=== PATIENT | female | born 1980 | race Two or more races ===

== ENCOUNTER → 2017-10-30 | Outpatient (CLI) | payer MEDICAID | END | disposition home or self-care (01) | LOC: CFH 07:23 | PROVIDERS: ATTEND Emergency Medicine | DX: R10.9 Unspecified abdominal pain (principal) | CPT/HCPCS: 76700 ==

== ENCOUNTER 2018-06-14 09:10 | Emergency (ER) | payer MEDICAID ==
[~2018-06-14] VITALS: Ht 165.1 cm; Wt 67.2 kg
[2018-06-14] MEDS ORDERED: ONDANSETRON ODT 4 MG PO ONE (09:30)
[2018-06-14] MEDS ORDERED: MECLIZINE CHEWABLE 25 MG TAB PO ONE (09:30)
[2018-06-14 10:05] LABS: BASOPHILS # (AUTO) 0.01 x10^3/uL (0-0.1); BASOPHILS % (AUTO) 0 % (0-1); EOSINOPHILS # (AUTO) 0.05 x10^3/uL (0-0.4); EOSINOPHILS % (AUTO) 0 % (1-7); LYMPHOCYTES # (AUTO) 1.77 x10^3/uL (1-3.4); LYMPHOCYTES % (AUTO) 17 % (22-44); MD NO; MEAN CORPUSCULAR HEMOGLOBIN 31.9 pg (27.0-34.8); MEAN CORPUSCULAR HGB CONC 34.9 g/dL (32.4-35.8); MEAN CORPUSCULAR VOLUME 91.4 fL (80-100); MEAN PLATELET VOLUME 8.9 fL (7.4-10.4); MONOCYTES # (AUTO) 0.21 x10^3/uL (0.2-0.8); MONOCYTES % (AUTO) 2 % (2-9); NEUTROPHILS % (AUTO) 81 % (42-75); PLATELET COUNT 297 x10^3/uL (130-400); RED BLOOD COUNT 4.58 x10^6/uL (3.82-5.3); RED CELL DISTRIBUTION WIDTH 12.8 % (9.6-15.2)
[2018-06-14 10:07] LABS: ANION GAP 8 mmol/L (5-15); CALCIUM 8.6 mg/dL (8.5-10.1); CHLORIDE 108 mmol/L (98-107)
[2018-06-14 10:13] LABS: CREATININE 0.69 mg/dL (0.55-1.02)
[2018-06-14] MEDS ORDERED: ONDANSETRON ODT 4 MG ONE (10:20)
[2018-06-14] MEDS ORDERED: MECLIZINE CHEWABLE 25 MG TAB ONE (10:20)
[2018-06-14] MEDS ORDERED: RANI150T23 PO (10:23)
[2018-06-14] MEDS ORDERED: ACETAMINOPHEN 325 MG TABLET ONE (12:51)
[2018-06-14] MEDS ORDERED: ACETAMINOPHEN 325 MG TABLET PO ONE (13:00)
[2018-06-14 13:53] VITALS: BP 94/53
== END 2018-06-14 13:55 | disposition home or self-care (01) ==
LOC: ED 13:49
DX: R42 Dizziness and giddiness (principal)
CPT/HCPCS: 36415; 70450; 80048; 84703; 85025; 93005; 99284; Q0162

== ENCOUNTER 2019-03-07 14:19 | Emergency (ER) | payer MEDICAID ==
[~2019-03-07] VITALS: Ht 167.6 cm; Wt 69.0 kg
[2019-03-07 15:33] VITALS: BP 98/62
== END 2019-03-07 17:27 | disposition home or self-care (01) ==
LOC: ED 17:15
DX: R42 Dizziness and giddiness (principal); R00.2 Palpitations
CPT/HCPCS: 36415; 71046; 80053; 84484; 84703; 85025; 93005; 99284